=== PATIENT | female | born 1945 | race Caucasian/White ===

== ENCOUNTER → 2018-02-12 | Day surgery (SDC) | payer OTHER, MEDICARE ==
[~2018-02-12] MED LIST: ALEV220T14 PO; ATOR10TA15 PO; EZET1TAB8 PO; FENO145T2 PO; GLYB5TAB3 PO; LEVO75TA3 PO; LIDOCAINE HCL 1% 30 ML VIAL INFIL ONE; LISI-515 PO; MEPERIDINE HCL 25 MG/ML VIAL IV ONE; METF1000 PO; METO1TAB9 PO; MULT1TAB61 PO; PROPOFOL 200 MG/20 ML AMP IV ONE; SODIUM CHLORIDE 0.9% 10 ML VIAL ONE; TRAM50TA PO; TRIAMCINOLONE ACETONIDE 40 MG/ML VIAL NERV BLOCK ONE
--- NOTE | 2018-02-12 10:17 | M6 ---
cc: Kurtis Church MD DATE: 02/12/2018 PROCEDURE PERFORMED: Fluoroscopically guided T1-T2 interlaminar epidural steroid injection. History and physical was completed and signed. Consent was signed. Procedure site was marked. Medications were listed and reconciled. Pain score was recorded. Allergies were noted. Time out was taken. Fluoroscopy time was recorded where applicable. Sedation was administered or directed by Dr. Church. The patient was given oxygen. The patient was monitored by a registered nurse. Total procedure time was greater than 15 minutes. DESCRIPTION: IV was started. Blood pressure cuff, pulse oximeter and EKG were applied. The patient was placed in the prone position on a Berhane table, sedated with small amounts of propofol titrated to effect. Vital signs were monitored and remained stable throughout the procedure. Cervical area was prepped with alcohol and 10% Betadine solution, draped with sterile drapes. Fluoroscopy was used to visualize the T1-T2 interlaminar space. The skin was infiltrated with 1% Xylocaine, using a 27-gauge needle. Then, a 3-1/2 inch 18 gauge Amaya needle was advanced using fluoroscopic guidance and the loss of resistance technique into the epidural space at T1-T2, slightly to the left of the midline. There was negative aspiration for blood or any other type of fluid and the patient was given 6 mL of normal saline and 40 mg of Kenalog. Following the procedure, the patient was taken to the recovery room with stable vital signs and neurologically intact. She will be evaluated immediately and with followup to determine if she has a subjective decrease in her usual pain and a corresponding objective increase in her functional capabilities. Kurtis Church MD [facility]/TL , 10:06 AM , 10:16 AM
== END | disposition home or self-care (01) ==
LOC: PHSDC 07:40
PROVIDERS: ATTEND Pain Medicine Interventional Pain Medicine
DX: M54.2 Cervicalgia (principal); M25.512 Pain in left shoulder
CPT/HCPCS: 62321; 99152; J2175; J3301

== ENCOUNTER → 2018-02-24 | Day surgery (SDC) | payer OTHER, MEDICARE ==
[~2018-02-24] MED LIST changes: +MAGN500T2 PO; +MAGNESIUM PO
--- NOTE | 2018-02-24 08:53 | M6 ---
cc: Kurtis Church MD DATE: 02/24/2018 DATE OF : 1945 PROCEDURE PERFORMED: Fluoroscopically guided T1-T2 interlaminar epidural steroid injection. History and physical was completed and signed. Consent was signed. Procedure site was marked. Medications were listed and reconciled. Pain score was recorded. Allergies were noted. Time out was taken. Fluoroscopy time was recorded where applicable. Sedation was administered or directed by Dr. Church. The patient was given oxygen. The patient was monitored by a registered nurse. Total procedure time was greater than 15 minutes. PROCEDURE NOTE: IV was started. Blood pressure cuff, pulse oximeter and EKG were applied. The patient was placed in the prone position on a Berhane table, sedated with small amounts of propofol titrated to effect. Vital signs were monitored and remained stable throughout the procedure. Cervical area was prepped with alcohol and 10% Betadine solution and draped with sterile drapes. Fluoroscopy was used to visualize the T1-T2 interlaminar space. The skin was infiltrated with 1% Xylocaine using a 27-gauge needle. Then, a 3-1/2 inch, 18-gauge Amaya needle was advanced using fluoroscopic guidance and the loss of resistance technique into the epidural space at T1-T2, slightly to the left of the midline. There was negative aspiration for blood or any other type of fluid and the patient was given 5 mL of normal saline which contained 40 mg of Kenalog. Following the procedure, the patient was taken to the recovery room with stable vital signs, neurologically intact. MD RADHA Farfan/WAYNE , 08:31 AM , 08:52 AM
== END | disposition home or self-care (01) ==
LOC: PHSDC 06:29
PROVIDERS: ATTEND Pain Medicine Interventional Pain Medicine
DX: M54.12 Radiculopathy, cervical region (principal); G24.1 Genetic torsion dystonia; M54.2 Cervicalgia; I10 Essential (primary) hypertension; E11.9 Type 2 diabetes mellitus without complications; J44.9 Chronic obstructive pulmonary disease, unspecified; E78.00 Pure hypercholesterolemia, unspecified; K57.92 Diverticulitis of intestine, part unspecified, without perforation or abscess without bleeding; M19.90 Unspecified osteoarthritis, unspecified site; Z79.84 Long term (current) use of oral hypoglycemic drugs
CPT/HCPCS: 62321; 99152; J2175; J3301